=== PATIENT | female | born 1980 | race Caucasian/White ===

== ENCOUNTER 2017-12-09 17:36 | Emergency (ER) | payer OTHER ==
[2017-12-09] MEDS ORDERED: BUDESONIDE 0.5MG/2ML AMPUL.NEB NEB ONE (17:47)
[2017-12-09] MEDS ORDERED: RACEPINEPHRINE HCL 1 EACH VIAL.NEB NEB ONE (18:01)
[2017-12-09] MEDS ORDERED: 0.9 % SODIUM CHLORIDE 1,000 ML IV SCH (18:30)
[2017-12-09] MEDS ORDERED: 0.9 % SODIUM CHLORIDE 1,000 ML IV ONE (18:34)
[2017-12-09 18:57] LABS: eGFR (Non-African) > 60
[2017-12-09 19:02] LABS: BASO % 0.5 % (0.0-1.5); EOS % 1.1 % (0.0-6.8); MCH. 28.4 pg (28.0-34.0); MCV 84.9 fL (80.0-100.0); MONOCYTE % 4.8 % (0.0-11.0); MONOCYTE ABS # 0.42 thou/uL (0.00-0.90); PLATELET COUNT 206 thou/uL (130-400)
--- NOTE | 2017-12-09 19:47 | ED Physician Documentation ---
Asthma - HISTORIAN Historian: patient - HPI Stated Complaint: SOA Chief Complaint: Asthma Additional Information: started soa/wheezing today Duration: continues in ED Initiating Event: out of meds (albuterol nebulizer txs) Associated Symptoms:: trouble breathing, shortness of breath. denies: productive cough, bloody sputum, chest discomfort, chest pain, chest pressure, chills Current Asthma Therapy: inhaled nebulizer, inhaled MDI Further Comments: no - ROS CONST: no problems EYES/ENT: denies: eye redness, eye itching, sore throat, runny nose CVS: denies: heart racing, palpitations GI/: none MS/SKIN/LYMPH: denies: ankle swelling, leg pain, rash, swollen glands, leg swelling, calf pain NEURO/PSYCH: denies: headache, dizziness, light-headedness, anxiety, tingling hands, muscle spasms hands, tingling face, muscle spasms face - PAST HX Asthma: occasional attacks Lung Disease: asthma DVT/PE Risk Factors: none Surgeries/Procedures: none Immunizations: referred to PCP Allergies/Adverse Reactions: Allergies Allergy/AdvReac Type Severity Reaction Status Date / Time No Known Allergies Allergy Verified 12/09/17 18:30 - SOCIAL HX Smoking History: non-smoker Alcohol Use: none Drug Use: none - FAMILY HX Family History: other (none) - VITAL SIGNS Vital Signs: Vital Signs Temp Pulse Resp BP Pulse Ox 97.8 F 68 32 H 128/82 96 12/09/17 17:36 12/09/17 17:36 12/09/17 17:36 12/09/17 17:36 12/09/17 17:36 - REVIEWED ASSESSMENTS Nursing Assessment Reviewed: Yes Vitals Reviewed: Yes Progress - Results/Orders Results/Orders: cbc, cmp, pt/ptt/inr, lactate, cxr ordered - Progress Progress: Pt. given duoneb and 125 mg solu medrol in ambulance. Pt. given pulmicort 0.5 mg via nebulizer and 1 liter NS IV in ER. Pt. went from 93% on 15 liter O2 by simple mask to RA and 97%. Critical Care Note - Critical Care Note Total Time (mins): 0 ED Results Lab/Radiology - Lab Results Lab Results: Lab Results 12/09/17 12/09/17 12/09/17 18:08 18:00 18:00 WBC Comment 8.85 thou/uL thou/uL (4.00-12.00) RBC 4.62 mil/uL mil/uL (3.90-5.20) Hemoglobin (Send Out) 13.1 g/dL g/dL (11.5-16.0) Hct (Send Out) 39.2 % % (34.5-46.5) MCV (Send Out) 84.9 fL fL (80.0-100.0) MCH 28.4 pg pg (28.0-34.0) MCHC (Send Out) 33.4 g/dL g/dL (30.0-36.0) RDW Coeff of Seferino 13.4 % % (11.3-14.7) Plt Count 206 thou/uL thou/uL (130-400) Absolute Lymphs (auto) 3.00 thou/uL thou/uL (0.60-4.00) Absolute Monos (auto) 0.42 thou/uL thou/uL (0.00-0.90) Absolute Basos (auto) 0.04 thou/uL thou/uL (0.00-0.50) Neutrophils % 59.7 % % (39.0-79.0) Absolute Neutrophils 5.28 thou/uL thou/uL (1.50-7.70) Lymphocytes 33.9 % % (16.0-50.0) Monocytes 4.8 % % (0.0-11.0) Absolute Eosinophils 0.10 thou/uL thou/uL (0.00-0.60) Basophilia % 0.5 % % (0.0-1.5) Eosinophil Count 1.1 % % (0.0-6.8) PT INR APTT Sodium 137 mmol/L mmol/L (136-145) Potassium 3.4 mmol/L L mmol/L (3.5-5.1) Chloride 102 mmol/L mmol/L (98-107) Carbon Dioxide 24 mmol/L mmol/L (22-30) BUN 9 mg/dL mg/dL (7-17) Creatinine 0.90 mg/dL mg/dL (0.52-1.04) Estimated Creat Clear 175 Est GFR ( Amer) > 60 (60 - ) Est GFR (Non-Af Amer) > 60 (60 - ) Glucose 95 mg/dL mg/dL (74-106) Lactate 2.3 U/L H U/L (0.7-2.1) Calcium 9.2 mg/dL mg/dL (8.4-10.2) Total Bilirubin 0.2 mg/dL mg/dL (0.2-1.3) AST 16 U/L U/L (15-46) ALT 32 U/L U/L (13-69) Alkaline Phosphatase 93 U/L U/L (38-126) Total Protein 6.7 g/dL g/dL (6.3-8.2) Albumin 3.9 g/dL g/dL (3.5-5.0) 12/09/17 18:00 WBC Comment RBC Hemoglobin (Send Out) Hct (Send Out) MCV (Send Out) MCH MCHC (Send Out) RDW Coeff of Seferino Plt Count Absolute Lymphs (auto) Absolute Monos (auto) Absolute Basos (auto) Neutrophils % Absolute Neutrophils Lymphocytes Monocytes Absolute Eosinophils Basophilia % Eosinophil Count PT 10.4 Seconds Seconds (9.4-11.6) INR 0.99 (0.9-1.2) APTT 28.5 Seconds Seconds (24.5-32.8) Sodium Potassium Chloride Carbon Dioxide BUN Creatinine Estimated Creat Clear Est GFR ( Amer) Est GFR (Non-Af Amer) Glucose Lactate Calcium Total Bilirubin AST ALT Alkaline Phosphatase Total Protein Albumin - Radiology Radiology Impressions: cxr neg for infiltrate, positive for hyperinflamation - Orders Orders: ED Orders Category Date Time Status CHEST 1VIEW [RAD] Routine Exams 12/09/17 Taken BLOOD CULTURE Routine Lab 12/09/17 18:05 Ordered CBC REF Routine Lab 12/09/17 18:00 Completed CBC/PLATELET/DIFF Routine Lab 12/09/17 18:00 Received CMP Routine Lab 12/09/17 18:00 Completed LACTATE Routine Lab 12/09/17 18:08 Completed PT-INR Routine Lab 12/09/17 18:00 Completed PTT Routine Lab 12/09/17 18:00 Completed 0.9 % Sodium Chloride [Normal Saline] 1,000 ml Med 12/09/17 18:30 Ordered IV .Q1H Budesonide [Pulmicort] Med 12/09/17 17:47 Discontinued 0.5 mg NEB .STK-MED ONE Budesonide [Pulmicort] Med 12/09/17 21:00 Ordered 0.5 mg NEB BID Racepinephrine HCl [S-2] Med 12/09/17 18:01 Discontinued 1 each NEB NOW ONE Oxygen Daily Oxygen 12/09/17 18:15 Ordered Asthma Physical Exam - EXAM General Appearance: alert, moderate distress EENT: eye inspection normal, ENT inspection normal, pharynx normal, no signs of dehydration, DONALD, no nystagmus, TM's nml Neck: nml inspection Respiratory: respiratory distress, wheezes, stridor, other (tachypnia). No: rales, rhonchi CVS: reg rate & rhythm, heart sounds normal, equal pulses, no murmur, no gallop, PMI nml, no JVD Abdomen: non-tender, no organomegaly, nml bowel sounds, no distention. No: tenderness Skin: color nml, no rash Extremities: non-tender, normal range of motion, no evidence of injury, no edema Neuro/Psych: oriented x3, neuro intact, mood/affect nml Discharge Clincal Impression: Asthma Qualifiers: Asthma severity: moderate Asthma persistence: unspecified Asthma complication type: with acute exacerbation Qualified Code(s): J45.901 - Unspecified asthma with (acute) exacerbation Referrals: Primary Doctor,No [Primary Care Provider] - 2 Days Comments: Discharged in stable and significantly improved condition with RA pulse ox 95%, unlabored breathing and wheeze free with prescription for albuterol prefills 1 via nebulizer qid and q4 hours prn #60 no refill and prednisone taper 50 mg x1 day, 40 mg x 1 day, 30 mg x 1 day, 20 mg x 1 day, 10 mg x 1 day then stop. Condition: Stable Disposition: HOME, SELF-CARE Decision to Admit: NO Decision Time: 19:48
[2017-12-09 20:35] VITALS: BP 113/48
[2017-12-09] MEDS ORDERED: BUDESONIDE 0.5MG/2ML AMPUL.NEB NEB SCH (21:00)
--- NOTE | 2017-12-09 21:58 | Diagnostic Imaging Report ---
DEN ZHANG [facility] [address] [facility] [address] [address] Report Submission Date: Dec 09, 2017 6:26:53 PM CDT Patient Study Name: HARPER PALMER Date: Dec 09, 2017 6:11:21 PM CDT Modality Type: DX Gender: F Description: CHEST : 80 Institution: [facility] Physician: DEN ZHANG Single frontal view of the chest History: SOA TODAY No comparison studies Low lung volumes cause bronchovascular crowding. Mild cardiomegaly. No focal consolidation, pleural effusion or pneumothorax. Right basilar minimal atelectasis. Tubing lies over the left chest and neck No acute osseous pathology Impression: 1. Hypoventilation causes bronchovascular crowding. Minimal right basilar atelectasis. Electronically signed on Dec 09, 2017 6:26:53 PM CDT by: Nicolasa CAZARES
== END 2017-12-09 19:45 | disposition home or self-care (01) ==
LOC: ED 17:36
DX: J45.901 Unspecified asthma with (acute) exacerbation (principal)
CPT/HCPCS: 71045; 80053; 83605; 85025; 85610; 85730; J7030; J7626; 94640; 96365

== ENCOUNTER 2017-12-17 20:18 | Emergency (ER) | payer OTHER ==
[2017-12-17] MEDS ORDERED: 0.9 % SODIUM CHLORIDE 1,000 ML IV ONE ×2 (21:03→23:07)
[2017-12-17] MEDS ORDERED: ONDANSETRON HCL/PF 4 MG/ 2ML VIAL IVP ONE (21:26)
--- NOTE | 2017-12-17 21:39 | ED Physician Documentation ---
Nausea/Vomiting/Diarrhea - HPI Stated Complaint: n/v/d Chief Complaint: Nausea,Vomiting,Diarrhea Onset: hours (12) Duration: constant Last known Well Date: 12/17/17 Last Known Well Time: 08:00 Timing: sudden onset Severity: mild - Associated Symptoms Vomiting: mild Diarrhea: watery (10 stools today) Abdominal Pain: cramping, LLQ, periumbilical - ROS CONST: denies: fever CVS/RESP: denies: chest pain, shortness of breath, cough GI/: none EYES/ENT: none MS/SKIN/LYMPH: denies: leg swelling NEURO/PSYCH: denies: none - PAST HX Past History: other (hypertension, asthma) Surgeries/Procedures: none Allergies/Adverse Reactions: Allergies Allergy/AdvReac Type Severity Reaction Status Date / Time No Known Allergies Allergy Verified 12/17/17 21:08 Home Medications: Ambulatory Orders Medication Instructions Recorded Albuterol Sulfate [Proair 2 inh INH QID 12/17/17 Respiclick] Bisacodyl 10 mg PO D 12/17/17 Cholecalciferol (Vitamin D3) 1,000 units PO D 12/17/17 [Vitamin D3] Citalopram Hydrobromide 20 mg PO D 12/17/17 [Citalopram HBr] Esomeprazole Magnesium [Nexium] 20 mg PO D 12/17/17 Fluticasone/Salmeterol [Advair 1 inh INH BID 12/17/17 250-50 Diskus] Folic Acid [Folvite] 1 mg PO D 12/17/17 Lamotrigine [Lamictal Odt] 125 mg PO HS 12/17/17 Loperamide HCl [Imodium A-D] 2 mg PO QID #30 capsule 12/17/17 Metformin HCl ER [Glucophage XR] 1,000 mg PO BID 12/17/17 Montelukast Sodium [Singulair] 10 mg PO HS 12/17/17 Naltrexone HCl/Bupropion HCl 50 mg PO D 12/17/17 [Contrave ER 8-90 mg Tablet] Diller-3 Fatty Acids/Fish Oil [Fish 1 tab PO D 12/17/17 Oil 1,000 mg Capsule] Pnv,Calcium 72/Iron/Folic Acid 1 tab PO D 12/17/17 [ Vitamin Plus Low Iron] Pravastatin Sodium 40 mg PO HS 12/17/17 Prazosin HCl [Minipress] 2 mg PO HS 12/17/17 Promethazine HCl [Phenergan] 25 mg PO Q6 #40 tablet 12/17/17 Psyllium Husk [Reguloid] 1 cap PO D 12/17/17 Venlafaxine HCl [Venlafaxine HCl 75 mg PO D 12/17/17 ER] Venlafaxine HCl [Venlafaxine HCl 150 mg PO D 12/17/17 ER] - SOCIAL HX Smoking History: non-smoker Alcohol Use: none Drug Use: none - FAMILY HX Family History: none - VITAL SIGNS Vital Signs: Vital Signs Temp Pulse Resp BP Pulse Ox 97.7 F 87 20 109/58 97 12/17/17 20:19 12/17/17 20:19 12/17/17 20:19 12/17/17 20:19 12/17/17 20:19 - REVIEWED ASSESSMENTS Nursing Assessment Reviewed: Yes Vitals Reviewed: Yes Progress - Progress Progress: 2300 Patient still having nausea after Zofran. Will give compazine. ED Results Lab/Radiology - Lab Results Lab Results: Lab Results 12/17/17 12/17/17 21:39 21:39 WBC Comment Test not performed thou/uL thou/uL (4.00-12.00) RBC Pending Hemoglobin (Send Out) Pending Hct (Send Out) Pending MCV (Send Out) Pending MCH Pending MCHC (Send Out) Pending RDW Coeff of Seferino Pending Plt Count Pending Absolute Lymphs (auto) Pending Absolute Monos (auto) Pending Absolute Basos (auto) Pending Neutrophils % Pending Absolute Neutrophils Pending Lymphocytes Pending Monocytes Pending Absolute Eosinophils Pending Basophilia % Pending Eosinophil Count Pending Sodium 132 mmol/L L mmol/L (136-145) Potassium 3.6 mmol/L mmol/L (3.5-5.1) Chloride 107 mmol/L mmol/L (98-107) Carbon Dioxide 27 mmol/L mmol/L (22-30) BUN 14 mg/dL mg/dL (7-17) Creatinine 0.80 mg/dL mg/dL (0.52-1.04) Estimated Creat Clear 194 Est GFR ( Amer) > 60 (60 - ) Est GFR (Non-Af Amer) > 60 (60 - ) Glucose 106 mg/dL mg/dL (74-106) Calcium 8.9 mg/dL mg/dL (8.4-10.2) Total Bilirubin 0.2 mg/dL mg/dL (0.2-1.3) AST 13 U/L L U/L (15-46) ALT 27 U/L U/L (13-69) Alkaline Phosphatase 82 U/L U/L (38-126) Total Protein 6.5 g/dL g/dL (6.3-8.2) Albumin 3.7 g/dL g/dL (3.5-5.0) UA negative, UA HCG negative. CT of the abdomen and pelvis with contrast Clinical history: Severe nausea and vomiting with generalized diffuse pain. Contrast administered: 96 mL Omnipaque 300. Technique: CT of the abdomen and pelvis is performed with intravenous infusion of contrast. Sagittal and coronal reconstructions were performed by the technologist. Findings: Visualized lung bases are clear. Liver and spleen demonstrate normal attenuation without focal defect. The gallbladder is normally distended. There is no pancreatic or adrenal abnormality. The kidneys demonstrate symmetric enhancement. There is no retroperitoneal mass or significant adenopathy. Uterus and adnexal structures are within normal limits. Intrauterine device is present. Bladder is unremarkable. There is no free fluid in the pelvis or abdomen. Gas and stool are present throughout the colon. Appendix is not identified, but there is no evidence of appendicitis Impression: 1. The appendix is not identified. 2. Intrauterine device. 3. No acute changes in the abdomen or pelvis. Electronically signed on Dec 17, 2017 10:50:30 PM CDT by: Yimi Mejia WBC 95, Hgb 13.4, Plts 192 - Orders Orders: ED Orders Category Date Time Status Place IV Lock 1T Care 12/17/17 21:[address] ABD & PELVIS W/ CON Stat Exams 12/17/17 Completed CBC REF Stat Lab 12/17/17 21:39 Results CMP Stat Lab 12/17/17 21:39 Completed URINALYSIS Routine Lab 12/17/17 Ordered URINE HCG [URINE HCG] Stat Lab 12/17/17 21:02 Ordered 0.9 % Sodium Chloride [Normal Saline] 1,000 ml Med 12/17/17 21:03 Discontinued IV Q1H 0.9 % Sodium Chloride [Normal Saline] 1,000 ml Med 12/17/17 23:07 Active IV Q1H Diphenoxylate HCl/Atropine [Lomotil] Med 12/17/17 23:34 Discontinued 1 each PO NOW ONE Ondansetron HCl/Pf [Zofran 4 mg/2 ml] Med 12/17/17 21:26 Discontinued 4 mg IVP NOW ONE Promethazine HCl [Phenergan] Med 12/17/17 22:40 Discontinued 25 mg .ROUTE .STK-MED ONE Promethazine HCl [Phenergan] Med 12/17/17 23:51 Ordered 25 mg PO Q6 PRN Promethazine HCl [Phenergan] 12.5 mg Med 12/17/17 22:38 Discontinued 0.9 % Sodium Chloride [Sodium Chloride] 50 ml IV NOW Nausea Physical Exam - EXAM General Appearance: no acute distress EENT: eye inspection normal Neck: normal inspection Respiratory: no resp distress, breath sounds normal CVS: reg rate & rhythm, heart sounds normal Abdomen: tenderness (periumbilical and LLQ) Back: non-tender. No: CVA tenderness Skin: warm/dry, normal color Extremities: non-tender, no edema Neuro/Psych: oriented X3, motor nml Discharge Clincal Impression: Viral gastroenteritis Clincal Impression: (Ruled Out): Nausea & vomiting, Diarrhea Prescriptions: Loperamide HCl [Imodium A-D] 2 mg PO QID #30 capsule Promethazine HCl [Phenergan] 25 mg PO Q6 #40 tablet Referrals: Primary Doctor,No [Primary Care Provider] - 2 Days Condition: Good Disposition: 01 HOME, SELF-CARE Decision to Admit: NO Date of Decison to Admit: 12/17/17 Decision Time: 23:42
[2017-12-17 22:04] LABS: eGFR (Non-African) > 60
[2017-12-17] MEDS ORDERED: PROMETHAZINE HCL 12.5 MG in 0.9 % SODIUM CHLORIDE 50 ML IV ONE (22:38)
[2017-12-17] MEDS ORDERED: PROMETHAZINE HCL 25 MG/ML VIAL ONE (22:40)
--- NOTE | 2017-12-17 23:07 | Diagnostic Imaging Report ---
NICOLE MENDOZA [facility] [address] [facility] [address] [place], [place]. [address] Report Submission Date: Dec 17, 2017 10:50:30 PM CDT Patient Study Name: HARPER PALMER Date: Dec 17, 2017 10:10:38 PM CDT MRN: [id number] Modality Type: CT Gender: F Description: CT ABD PELVIS W/ CON : 80 Institution: [facility] Physician: NICOLE MENDOZA CT of the abdomen and pelvis with contrast Clinical history: Severe nausea and vomiting with generalized diffuse pain. Contrast administered: 96 mL Omnipaque 300. Technique: CT of the abdomen and pelvis is performed with intravenous infusion of contrast. Sagittal and coronal reconstructions were performed by the technologist. Findings: Visualized lung bases are clear. Liver and spleen demonstrate normal attenuation without focal defect. The gallbladder is normally distended. There is no pancreatic or adrenal abnormality. The kidneys demonstrate symmetric enhancement. There is no retroperitoneal mass or significant adenopathy. Uterus and adnexal structures are within normal limits. Intrauterine device is present. Bladder is unremarkable. There is no free fluid in the pelvis or abdomen. Gas and stool are present throughout the colon. Appendix is not identified, but there is no evidence of appendicitis Impression: 1. The appendix is not identified. 2. Intrauterine device. 3. No acute changes in the abdomen or pelvis. Electronically signed on Dec 17, 2017 10:50:30 PM CDT by: Yimi CAZARES
[2017-12-17] MEDS ORDERED: DIPHENOXYLATE HCL/ATROPINE 1 EACH TABLET PO ONE (23:34)
[2017-12-17] MEDS ORDERED: PROMETHAZINE HCL 25 MG TABLET PO PRN (23:51)
[2017-12-18] MEDS ORDERED: PROMETHAZINE HCL 25 MG TABLET PO ONE (00:06)
[2017-12-18 00:21] VITALS: BP 112/61
[2017-12-23 13:31] LABS: LYMPH ABS # 2.6; MCH. 28.6; MCV 88.7; MONOCYTE ABS # 0.7; PLATELET COUNT 192
== END 2017-12-18 00:15 | disposition home or self-care (01) ==
LOC: ED 20:18
DX: A08.4 Viral intestinal infection, unspecified (principal)
CPT/HCPCS: 74177; 80053; 85025; J2405; J2550; J7030; 96365; 96366; 96367; 96375; Q9967; S1016

== ENCOUNTER 2018-01-16 10:07 | Emergency (ER) | payer OTHER ==
[2018-01-16] MEDS ORDERED: RACEPINEPHRINE HCL 1 EACH VIAL.NEB NEB ONE ×2 (10:10→10:12)
[2018-01-16] MEDS ORDERED: SODIUM CHLORIDE 3 ML VIAL.NEB IH ONE ×2 (10:12→10:50)
[2018-01-16] MEDS ORDERED: MORPHINE SULFATE 2 MG/ML PREFILLED SYR IVP ONE (10:22)
[2018-01-16] MEDS ORDERED: GUAIFENESIN/CODEINE 10 ML S/F LIQUID DOSE CUP PO ONE (10:39)
[2018-01-16 10:42] LABS: ABG PH 7.54 (7.35-7.45)
[2018-01-16 10:43] LABS: BASOPHILS % 0.3 (0.0-1.5); EOSINOPHILS % 1.2 % (0.0-6.8); MONOCYTES % 4.2 % (0.0-11.0); NEUTROPHILS # 4.5 # k/uL (1.4-7.7)
--- NOTE | 2018-01-16 10:47 | ED Physician Documentation ---
Dyspnea - HISTORIAN Historian: paramedics - [facility] Stated Complaint: asthma Chief Complaint: Wheezing Onset: minutes Duration: continues in ED Further Comments: yes (37 year old female patient brought in by [facility] from [facility]. Patient has had 3 albuterol nebs for audible wheezing at the [facility] home; 1 duoneb and 125mg of solumedrol in route by EMS. On arrival, patient has stridor, no lower airway wheezing. Sat 95% on RA. RR 28-30.) - ROS CONST: no problems EYES/ENT: none GI/: none NEURO/PSYCH: denies: headache MS/SKIN/LYMPH: none - PAST HX Lung Disease: asthma Other History: other (depression, chronic constipation, HLD, mental retardation, asthma) Allergies/Adverse Reactions: Allergies Allergy/AdvReac Type Severity Reaction Status Date / Time No Known Allergies Allergy Verified 01/16/18 11:01 Home Medications: Ambulatory Orders Medication Instructions Recorded Albuterol Sulfate [Proair 2 inh INH QID 12/17/17 Respiclick] Bisacodyl 10 mg PO D 12/17/17 Cholecalciferol (Vitamin D3) 1,000 units PO D 12/17/17 [Vitamin D3] Citalopram Hydrobromide 20 mg PO D 12/17/17 [Citalopram HBr] Esomeprazole Magnesium [Nexium] 20 mg PO D 12/17/17 Fluticasone/Salmeterol [Advair 1 inh INH BID 12/17/17 250-50 Diskus] Folic Acid [Folvite] 1 mg PO D 12/17/17 Lamotrigine [Lamictal Odt] 125 mg PO HS 12/17/17 Loperamide HCl [Imodium A-D] 2 mg PO QID #30 capsule 12/17/17 Metformin HCl ER [Glucophage XR] 1,000 mg PO BID 12/17/17 Montelukast Sodium [Singulair] 10 mg PO HS 12/17/17 Naltrexone HCl/Bupropion HCl 50 mg PO D 12/17/17 [Contrave ER 8-90 mg Tablet] Mesa-3 Fatty Acids/Fish Oil [Fish 1 tab PO D 12/17/17 Oil 1,000 mg Capsule] Pnv,Calcium 72/Iron/Folic Acid 1 tab PO D 12/17/17 [ Vitamin Plus Low Iron] Pravastatin Sodium 40 mg PO HS 12/17/17 Prazosin HCl [Minipress] 2 mg PO HS 12/17/17 Promethazine HCl [Phenergan] 25 mg PO Q6 #40 tablet 12/17/17 Psyllium Husk [Reguloid] 1 cap PO D 12/17/17 Venlafaxine HCl [Venlafaxine HCl 75 mg PO D 12/17/17 ER] Venlafaxine HCl [Venlafaxine HCl 150 mg PO D 12/17/17 ER] - SOCIAL HX Smoking History: non-smoker - FAMILY HX Family History: denies: none - VITAL SIGNS Vital Signs: Vital Signs Temp Pulse Resp BP Pulse Ox 99.0 F 109 H 40 H 116/79 97 01/16/18 10:07 01/16/18 10:09 01/16/18 10:07 01/16/18 10:07 01/16/18 10:09 - REVIEWED ASSESSMENTS Nursing Assessment Reviewed: Yes Vitals Reviewed: Yes Progress - Progress Progress: Racemic epi neb given on arrival. 1040 Continued stridor - nebulized saline treatments started. Robitussin AC given for cough. 1315 CT results reviewed with staff; will trial patient off O2 1330 Increased work of breathing; Sat 91% on RA. O2 replaced. lactate 4.9 - will need admission [address] Cotton - orders for antibiotic and decadron. 1415 Admit denied by administration - no nursing staff. [address] [facility]; patient attempted to drink apple juice. Choking noted. No RUL infiltrate present; haze in right hilium area; cannot rule out aspiration. [address] [facility], case discussed with Dr Hu; updated on meds, choking and possible need to r/o aspiration. Patient has [address] [facility] with ICU stay due to asthma. Patient accepted by Dr Hu. ED Results Lab/Radiology - Radiology Radiology Impressions: Examination: Cervical spine History: STRIDOR; FB PATIENT STATES TROUBLE BREATHING ALL DAY (Hx) Comparison exams: None available Findings: 2 views of the cervical spine demonstrate normal height and alignment. No anterior compression. No abnormal listhesis. Degenerative spurring. No odontoid abnormality. No prevertebral abnormality. No obvious epiglottitis enlargement. Impression: No acute appearing osseous abnormality. Consider obtaining CT neck to further evaluate if clinically warranted. Electronically signed on Jan 16, 2018 11:45:07 AM CDT by: Pratik Stein Examination: Portable chest History: Evaluate lungs STRIDOR; FB PATIENT STATES TROUBLE BREATHING ALL DAY (Hx) Comparison exam: 09 December 2017 Findings: Single view of the chest demonstrates a normal cardiac silhouette. Mild prominence of the right hilum. Lung rosales without focal infiltrate. No blunting of the costophrenic margins. Osseous structures are appropriate for age. Impression: No acute pulmonary process. Mild prominence of the right hilum - followup/further evaluate as clinically warranted. Electronically signed on Jan 16, 2018 11:43:37 AM CDT by: Pratik Stein CT soft tissue neck with contrast History: Dysphasia. Feels like a foreign body is in his throat Technique: Helically acquired images were obtained from the skullbase to the thoracic inlet following IV contrast. Findings: Visualized intracranial structures are unremarkable. No intraorbital abnormalities are noted. The nasopharynx and oropharynx are unremarkable. The epiglottis and aryepiglottic folds are normal. Parapharyngeal spaces are appropriately fatty. Parotid and submandibular glands are normal. The left internal carotid artery extends into the retropharyngeal space attenuating the left piriform sinus. It is possible that this anatomic variant may represent a source for dysphagia. The thyroid gland is normal. Lung apices are clear. There is mild mucosal thickening inferiorly in the bilateral maxillary sinuses. Mastoid air cells are under developed bilaterally. There is mild disc space narrowing with mild anterior and posterior spondylosis at C4/5. Impression: The only source for possible dysphagia or sensation of a foreign body involves retropharyngeal positioning of the left internal carotid artery. The retropharyngeal left internal carotid artery does attenuate the left pyriform sinus. No additional abnormalities of the soft tissues of the neck are noted. 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 Electronically signed on Jan 16, 2018 12:52:58 PM CDT by: Elen Nuñez - Orders Orders: ED Orders Category Date Time Status Continuous EKG monitoring Q30M Care 01/16/18 10:09 Active Continuous Pulse Oximetry Q30M Care 01/16/18 10:[address] IV Lock 1T Care 01/16/18 10:10 Active CHEST 1VIEW [RAD] Stat Exams 01/16/18 10:09 Ordered SOFT TISSUE NECK [RAD] Stat Exams 01/16/18 Ordered BLOOD CULTURE Stat Lab 01/16/18 10:25 Received CBC/PLATELET/DIFF Stat Lab 01/16/18 10:15 Received CMP Stat Lab 01/16/18 10:15 Received LACTATE Stat Lab 01/16/18 10:15 Received TROPONIN I (cTnI) Stat Lab 01/16/18 10:15 Received Codeine Phosphate/Guaifenesin [Robitussin AC] Med 01/16/18 10:39 Discontinued 10 ml PO NOW ONE Morphine Sulfate [DepoDur] Med 01/16/18 10:22 Discontinued 2 mg IVP NOW ONE Racepinephrine HCl [S-2] Med 01/16/18 10:12 Discontinued 1 each NEB .STK-MED ONE Racepinephrine HCl [S-2] Med 01/16/18 10:10 Once 1 each NEB NOW ONE Sodium Chloride For Inhalation [Dey] Med 01/16/18 10:12 Discontinued 3 ml IH .STK-MED ONE Oxygen Daily Oxygen 01/16/18 10:15 Ordered Dyspnea Physical Exam - EXAM General Appearance: mild distress EENT: eye inspection normal, DONALD Respiratory: decreased air movement (bases), stridor, other (RR 28-20; stridor noted; no lower airway wheezing, O2 applied at 2L NC; abg pending. ). No: respiratory distress CVS: no murmur, no gallop, no friction rub, pulses full, pulses equal, other (tachycardia 100-110) Abdomen: non-tender, no organomegaly, no distention, no ascites, other (morbid obesity) Skin: color nml, no rash, warm, nml palp., dry Neuro/Psych: motor nml, sensation nml, other (patient awake, alert; answers simple questions appropriately, at her baseline per [facility] home staff at bedside. ) Discharge Clincal Impression: Stridor, Elevated serum lactate dehydrogenase, Hypoxemia requiring supplemental oxygen Referrals: Primary Doctor,No [Primary Care Provider] - 2 Days Condition: Stable Disposition: 02 XFER SHT-TRM HOSP Decision to Admit: NO Decision Time: 14:11
[2018-01-16 10:50] LABS: eGFR (Non-African) > 60
[2018-01-16] MEDS ORDERED: 0.9 % SODIUM CHLORIDE 1,000 ML IV ONE (13:07)
[2018-01-16] MEDS ORDERED: LEVOFLOXACIN 250MG/D5W 50ML 250 MG in PREMIX BAG 1 BAG IV ONE (13:59)
[2018-01-16] MEDS ORDERED: DEXAMETHASONE SOD PHOS 4 MG/ML VIAL IVP ONE (13:59)
[2018-01-16] MEDS ORDERED: LEVOFLOXACIN 500MG/D5W 100ML 500 MG in PREMIX BAG 1 BAG IV ONE (13:59)
[2018-01-16] MEDS ORDERED: LEVOFLOXACIN 500MG/D5W 100ML 100 ML IV ONE (14:12)
[2018-01-16] MEDS ORDERED: LEVOFLOXACIN 250MG/D5W 50ML 50 ML IV ONE (14:12)
--- NOTE | 2018-01-16 14:16 | Diagnostic Imaging Report ---
GILBERT BURROUGHS (LAY OUT FORMER) - ER [facility] [address] [id number] Report Submission Date: Jan 16, 2018 11:43:37 AM CDT Patient Study Name: HARPER PALMER Date: Jan 16, 2018 11:00:05 AM CDT Modality Type: DX Gender: F Description: CHEST : 80 Institution: [facility] Physician: GILBERT BURROUGHS (DEMETRICE) - ER Examination: Portable chest History: Evaluate lungs STRIDOR; FB PATIENT STATES TROUBLE BREATHING ALL DAY (Hx) Comparison exam: 09 December 2017 Findings: Single view of the chest demonstrates a normal cardiac silhouette. Mild prominence of the right hilum. Lung rosales without focal infiltrate. No blunting of the costophrenic margins. Osseous structures are appropriate for age. Impression: No acute pulmonary process. Mild prominence of the right hilum - followup/further evaluate as clinically warranted. Electronically signed on Jan 16, 2018 11:43:37 AM CDT by: Pratik CAZARES
--- NOTE | 2018-01-16 14:19 | Diagnostic Imaging Report ---
GILBERT BURROUGHS (LEARNING STRATEGIST) - ER [facility] [address] [address] Report Submission Date: Jan 16, 2018 11:45:07 AM CDT Patient Study Name: HARPER PALMER Date: Jan 16, 2018 11:02:34 AM CDT Modality Type: DX Gender: F Description: SPINE : 80 Institution: [facility] Physician: GILBERT BURROUGHS (DEMETRICE) - ER Examination: Cervical spine History: STRIDOR; FB PATIENT STATES TROUBLE BREATHING ALL DAY (Hx) Comparison exams: None available Findings: 2 views of the cervical spine demonstrate normal height and alignment. No anterior compression. No abnormal listhesis. Degenerative spurring. No odontoid abnormality. No prevertebral abnormality. No obvious epiglottitis enlargement. Impression: No acute appearing osseous abnormality. Consider obtaining CT neck to further evaluate if clinically warranted. Electronically signed on Jan 16, 2018 11:45:07 AM CDT by: Pratik CAZARES
--- NOTE | 2018-01-16 14:25 | Diagnostic Imaging Report ---
GILBERT BURROUGHS (DEMETRICE) - ER [facility] [address] [facility].[address] [address] Report Submission Date: Jan 16, 2018 12:52:58 PM CDT Patient Study Name: HARPER PALMER Date: Jan 16, 2018 12:14:59 PM CDT Modality Type: CT\SR Gender: F Description: CT NECK SOFT TISSUE W/ : 80 Institution: [facility] Physician: GILBERT BURROUGHS (DEMETRICE) - ER CT soft tissue neck with contrast History: Dysphasia. Feels like a foreign body is in his throat Technique: Helically acquired images were obtained from the skullbase to the thoracic inlet following IV contrast. Findings: Visualized intracranial structures are unremarkable. No intraorbital abnormalities are noted. The nasopharynx and oropharynx are unremarkable. The epiglottis and aryepiglottic folds are normal. Parapharyngeal spaces are appropriately fatty. Parotid and submandibular glands are normal. The left internal carotid artery extends into the retropharyngeal space attenuating the left piriform sinus. It is possible that this anatomic variant may represent a source for dysphagia. The thyroid gland is normal. Lung apices are clear. There is mild mucosal thickening inferiorly in the bilateral maxillary sinuses. Mastoid air cells are under developed bilaterally. There is mild disc space narrowing with mild anterior and posterior spondylosis at C4/5. Impression: The only source for possible dysphagia or sensation of a foreign body involves retropharyngeal positioning of the left internal carotid artery. The retropharyngeal left internal carotid artery does attenuate the left pyriform sinus. No additional abnormalities of the soft tissues of the neck are noted. 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 Electronically signed on Jan 16, 2018 12:52:58 PM CDT by: Elen CAZARES
[2018-01-16 15:26] VITALS: BP 115/80
== END 2018-01-16 15:16 | disposition short-term general hospital (02) ==
LOC: ED 10:07
DX: R06.1 Stridor (principal); R09.02 Hypoxemia; R74.0 Nonspecific elevation of levels of transaminase and lactic acid dehydrogenase [LDH]; Z99.81 Dependence on supplemental oxygen
CPT/HCPCS: 36415; 36600; 70360; 70491; 71045; 80053; 82803; 83605; 84484; 85025; 87040; J1100; J1956; J2270; J7030; 96365; 96375; Q9967